=== PATIENT | female | born 1985 | race Hispanic/Latino ===

== ENCOUNTER 2022-08-11 08:55 | Emergency (ER) | payer SELFPAY ==
[~2022-08-11] VITALS: Ht 160 cm; Wt 68.0 kg
[2022-08-11] MEDS ORDERED: PRISTIQ ER50 MG PO (09:34)
[2022-08-11] MEDS ORDERED: TRAZODONE HCL50 MG PO (09:52)
[2022-08-11 10:05] VITALS: BP 141/85
== END 2022-08-11 10:05 | disposition home or self-care (01) ==
LOC: ED 08:55
DX: G47.00 Insomnia, unspecified (principal); F41.9 Anxiety disorder, unspecified; Z79.899 Other long term (current) drug therapy
CPT/HCPCS: 99283